=== PATIENT | female | born 1950 | race Caucasian/White ===

== ENCOUNTER → 2017-12-30 | Outpatient (CLI) | payer OTHER, MEDICARE | LOC: BHFA 14:45 | PROVIDERS: ATTEND Internal Medicine Cardiovascular Disease | DX: I42.2 Other hypertrophic cardiomyopathy (principal); I72.9 Aneurysm of unspecified site; I51.7 Cardiomegaly; Q23.1 Congenital insufficiency of aortic valve ==

== ENCOUNTER → 2018-01-07 | Outpatient (CLI) | payer OTHER, MEDICARE ==
[~2018-01-07] MED LIST: IOPAMIDOL (ISOVUE 370) 100 ML BTL IV ONE
== END ==
LOC: FIMAGING 15:24
PROVIDERS: ATTEND Internal Medicine Interventional Cardiology
DX: I71.9 Aortic aneurysm of unspecified site, without rupture (principal); I10 Essential (primary) hypertension
CPT/HCPCS: 71275; Q9967; 82565-PO

== ENCOUNTER → 2018-03-18 | Outpatient (CLI) | payer OTHER, MEDICARE | LOC: FIMAGING 10:38 | PROVIDERS: ATTEND Internal Medicine | DX: Z12.31 Encounter for screening mammogram for malignant neoplasm of breast (principal); Z13.820 Encounter for screening for osteoporosis; M81.0 Age-related osteoporosis without current pathological fracture ==